=== PATIENT | male | born 1935 | race Caucasian/White ===

== ENCOUNTER → 2017-12-24 | Outpatient (CLI) | payer OTHER ==
[~2017-12-24] MED LIST: ATRO1SO BOTHEYES; Aspir 8181 MG PO; B-12250 MCG; CALCAVITD; Co Q-1010 MG; DOCU100 PO; FISH1000; Ferrous Sulfat324 MG PO; GLYCAS; Garlic1 EACH; Metformin HCl500 MG PO; Multiple Vitam1 EAC1; OXYACE5T PO; Pred Forte1 ML OP; Prinivil10 MG PO; SODCHL2SO TOP; SODCHL3.5O BOTHEYES; Saw Palmetto80 MG; WARF2.5 PO
== END | disposition home or self-care (01) ==
LOC: PLD 10:23 → LAB SHORT 10:23
DX: D48.5 Neoplasm of uncertain behavior of skin (principal)
CPT/HCPCS: 88305

== ENCOUNTER 2019-01-25 16:08 | Emergency (ER) | payer OTHER ==
[~2019-01-25] VITALS: Ht 182.9 cm; Wt 111.1 kg
[2019-01-25 17:16] LABS: BASOPHILS ABSOLUTE AUTO 0.04 K/mm3 (0.00-0.23); BASOPHILS PERCENT AUTO 1 % (0-2); EOSINOPHILS ABSOLUTE AUTO 0.14 K/mm3 (0.00-0.68); EOSINOPHILS PERCENT AUTO 2 % (0-6); Hematocrit 38.7 % (37.0-53.0); Hemoglobin 13.4 g/dL (13.5-17.5); IMMATURE GRAN ABSOLUTE AUTO 0.02 K/mm3 (0.00-0.10); IMMATURE GRAN PERCENT AUTO 0 % (0-1); LYMPHOCYTES PERCENT AUTO 12 % (21-46); MONOCYTES ABSOLUTE AUTO 0.77 K/mm3 (0.16-1.47); MONOCYTES PERCENT AUTO 10 % (4-13); Mean Corpuscular HGB 33.7 pg (26.0-34.0); Mean Corpuscular HGB Conc 34.6 g/dL (31.5-36.5); Mean Corpuscular Volume 97 fL (80-100); Mean Platelet Volume 10.6 fL (9.1-12.4); NEUTROPHILS ABSOLUTE AUTO 5.78 K/mm3 (1.96-9.15); NEUTROPHILS PERCENT AUTO 76 % (41-73); Platelet Count 192 K/mm3 (150-400); RDW Coefficient Variation 11.9 % (11.7-14.2); RDW Standard Deviation 42.7 fL (35.1-46.3); Red Blood Cell Count 3.98 M/mm3 (4.30-5.90); White Blood Cell Count 7.65 K/mm3 (4.00-11.30)
[2019-01-25 17:35] LABS: Alanine Aminotransfer (ALT/SGP 42 U/L (12-78); Albumin, Blood 3.5 g/dL (3.4-5.0); Albumin/Globulin Ratio 0.8 (0.8-1.8); Alk Phos 72 U/L (50-136); Anion Gap 9 mmol/L (6-16); Aspartate Aminotrans (AST/SGOT 34 U/L (12-37); Bilirubin, Total 0.6 mg/dL (0.1-1.0); Blood Urea Nitrogen 34 mg/dL (8-24); Bun/Creatinine Ratio 31.8 (12.0-20.0); CO2, Blood 24 mmol/L (21-32); Calcium, Blood 8.5 mg/dL (8.5-10.1); Chloride, Blood 101 mmol/L (98-108); Creatinine, Blood 1.07 mg/dL (0.60-1.20); Globulin, Blood 4.2 g/dL (2.2-4.0); Glomerular Filtration Rate >60 (60-); Glucose, Blood 117 mg/dL (70-99); Sodium, Blood 134 mmol/L (136-145); Total Protein, Blood 7.7 g/dL (6.4-8.2)
[2019-01-25] MEDS ORDERED: METF500 (19:42)
[2019-01-25] MEDS ORDERED: LISI5 PO (19:42)
[2019-01-25] MEDS ORDERED: SODCHL3.5O BOTHEYES (19:42)
[2019-01-25] MEDS ORDERED: ATROPINE SULFATE2 ML OP (19:43)
[2019-01-25] MEDS ORDERED: PREDNISOLONE ACE5 ML OP (19:43)
[2019-01-25] MEDS ORDERED: TUMS500 MG PO (19:44)
[2019-01-25] MEDS ORDERED: ASPI81CH PO (19:44)
[2019-01-25] MEDS ORDERED: CYAN100T2 (19:45)
[2019-01-25] MEDS ORDERED: Garlic1 EAC1 PO (19:45)
[2019-01-25] MEDS ORDERED: FISH OIL + D31 EACH PO (19:46)
[2019-01-25] MEDS ORDERED: Keflex500 MG PO (22:26)
== END 2019-01-25 23:30 | disposition home or self-care (01) ==
LOC: ER 16:08
PROVIDERS: Physician Assistant
DX: L03.116 Cellulitis of left lower limb (principal); E11.9 Type 2 diabetes mellitus without complications; Z88.2 Allergy status to sulfonamides; Z79.899 Other long term (current) drug therapy; Z79.82 Long term (current) use of aspirin; Z79.52 Long term (current) use of systemic steroids; I10 Essential (primary) hypertension
CPT/HCPCS: 36415; 80053; 83605; 85025; 93971; 96361; 96365; 99284-25; J7120

== ENCOUNTER 2022-03-27 00:42 | Day surgery (SDC) | payer OTHER ==
[~2022-03-27 00:42] MED LIST changes: +ASPI81CH PO; +ATROPINE SULFATE2 ML OP; +CYAN100T2; +FISH OIL + D31 EACH PO; +Garlic1 EAC1 PO; +Keflex500 MG PO; +LISI5 PO; +METF500; +PREDNISOLONE ACE5 ML OP; +TUMS500 MG PO
== END 2022-03-27 23:19 | disposition home or self-care (01) ==
LOC: WOUND 00:42
DX: L97.812 Non-pressure chronic ulcer of other part of right lower leg with fat layer exposed (principal); L97.819 Non-pressure chronic ulcer of other part of right lower leg with unspecified severity; T14.8XXA Other injury of unspecified body region, initial encounter; E11.59 Type 2 diabetes mellitus with other circulatory complications; I87.2 Venous insufficiency (chronic) (peripheral); Z88.0 Allergy status to penicillin; Z88.2 Allergy status to sulfonamides; Z88.8 Allergy status to other drugs, medicaments and biological substances
CPT/HCPCS: A9270; G0463

== ENCOUNTER 2022-04-03 03:09 | Day surgery (SDC) | payer OTHER | END 2022-04-03 23:19 | disposition home or self-care (01) | LOC: WOUND 03:09 | DX: E11.622 Type 2 diabetes mellitus with other skin ulcer (principal); L97.822 Non-pressure chronic ulcer of other part of left lower leg with fat layer exposed; I87.313 Chronic venous hypertension (idiopathic) with ulcer of bilateral lower extremity; L97.912 Non-pressure chronic ulcer of unspecified part of right lower leg with fat layer exposed; E11.59 Type 2 diabetes mellitus with other circulatory complications; I87.2 Venous insufficiency (chronic) (peripheral) | CPT/HCPCS: A9270 ==

== ENCOUNTER 2022-04-17 01:07 | Day surgery (SDC) | payer OTHER | END 2022-04-17 23:36 | disposition home or self-care (01) | LOC: WOUND 01:07 | DX: E11.622 Type 2 diabetes mellitus with other skin ulcer (principal); L97.822 Non-pressure chronic ulcer of other part of left lower leg with fat layer exposed; L97.812 Non-pressure chronic ulcer of other part of right lower leg with fat layer exposed; I87.312 Chronic venous hypertension (idiopathic) with ulcer of left lower extremity; I87.311 Chronic venous hypertension (idiopathic) with ulcer of right lower extremity; E11.59 Type 2 diabetes mellitus with other circulatory complications; I87.2 Venous insufficiency (chronic) (peripheral) | CPT/HCPCS: A9270; G0463 ==

== ENCOUNTER 2022-04-24 00:34 | Day surgery (SDC) | payer OTHER | END 2022-04-24 23:57 | disposition home or self-care (01) | LOC: WOUND 00:34 | DX: E11.622 Type 2 diabetes mellitus with other skin ulcer (principal); E11.59 Type 2 diabetes mellitus with other circulatory complications; I96 Gangrene, not elsewhere classified; I87.313 Chronic venous hypertension (idiopathic) with ulcer of bilateral lower extremity; L97.822 Non-pressure chronic ulcer of other part of left lower leg with fat layer exposed; L97.912 Non-pressure chronic ulcer of unspecified part of right lower leg with fat layer exposed | CPT/HCPCS: A9270 ==

== ENCOUNTER 2022-05-01 08:00 | Day surgery (SDC) | payer OTHER | END 2022-05-01 23:59 | disposition home or self-care (01) | LOC: WOUND 08:00 | DX: E11.622 Type 2 diabetes mellitus with other skin ulcer (principal); I87.312 Chronic venous hypertension (idiopathic) with ulcer of left lower extremity; L97.822 Non-pressure chronic ulcer of other part of left lower leg with fat layer exposed; I87.2 Venous insufficiency (chronic) (peripheral) | CPT/HCPCS: A9270 ==

== ENCOUNTER → 2022-05-04 | Outpatient (CLI) | payer OTHER | END | disposition home or self-care (01) | LOC: LAB 10:31 → LAB SHORT 10:31 | DX: L98.1 Factitial dermatitis (principal) | CPT/HCPCS: 87070; 87077; 87186; 87205 ==

== ENCOUNTER 2022-05-08 02:30 | Day surgery (SDC) | payer OTHER | END 2022-05-08 23:35 | disposition home or self-care (01) | LOC: WOUND 02:30 | DX: E11.622 Type 2 diabetes mellitus with other skin ulcer (principal); L97.822 Non-pressure chronic ulcer of other part of left lower leg with fat layer exposed; L97.912 Non-pressure chronic ulcer of unspecified part of right lower leg with fat layer exposed; E11.59 Type 2 diabetes mellitus with other circulatory complications; I87.2 Venous insufficiency (chronic) (peripheral); I87.312 Chronic venous hypertension (idiopathic) with ulcer of left lower extremity; I87.311 Chronic venous hypertension (idiopathic) with ulcer of right lower extremity | CPT/HCPCS: A9270 ==

== ENCOUNTER 2022-05-22 00:29 | Day surgery (SDC) | payer OTHER | END 2022-05-22 23:56 | disposition home or self-care (01) | LOC: WOUND 00:29 | DX: E11.622 Type 2 diabetes mellitus with other skin ulcer (principal); L97.822 Non-pressure chronic ulcer of other part of left lower leg with fat layer exposed; I87.313 Chronic venous hypertension (idiopathic) with ulcer of bilateral lower extremity; L97.912 Non-pressure chronic ulcer of unspecified part of right lower leg with fat layer exposed; E11.59 Type 2 diabetes mellitus with other circulatory complications; I87.2 Venous insufficiency (chronic) (peripheral) | CPT/HCPCS: A9270 ==

== ENCOUNTER 2022-05-29 07:25 | Day surgery (SDC) | payer OTHER | END 2022-05-29 23:08 | disposition home or self-care (01) | LOC: WOUND 07:25 | DX: E11.622 Type 2 diabetes mellitus with other skin ulcer (principal); I87.312 Chronic venous hypertension (idiopathic) with ulcer of left lower extremity; L97.822 Non-pressure chronic ulcer of other part of left lower leg with fat layer exposed; I87.2 Venous insufficiency (chronic) (peripheral) | CPT/HCPCS: A9270 ==

== ENCOUNTER 2022-06-05 05:10 | Day surgery (SDC) | payer OTHER | END 2022-06-05 23:33 | disposition home or self-care (01) | LOC: WOUND 05:10 | DX: E11.622 Type 2 diabetes mellitus with other skin ulcer (principal); I87.313 Chronic venous hypertension (idiopathic) with ulcer of bilateral lower extremity; L97.822 Non-pressure chronic ulcer of other part of left lower leg with fat layer exposed; L97.812 Non-pressure chronic ulcer of other part of right lower leg with fat layer exposed; E11.59 Type 2 diabetes mellitus with other circulatory complications; I87.2 Venous insufficiency (chronic) (peripheral) | CPT/HCPCS: G0463 ==

== ENCOUNTER 2022-06-06 02:39 | Day surgery (SDC) | payer OTHER | END 2022-06-06 22:51 | disposition home or self-care (01) | LOC: WOUND 02:39 | DX: I87.313 Chronic venous hypertension (idiopathic) with ulcer of bilateral lower extremity (principal); L97.922 Non-pressure chronic ulcer of unspecified part of left lower leg with fat layer exposed; L97.912 Non-pressure chronic ulcer of unspecified part of right lower leg with fat layer exposed; E11.59 Type 2 diabetes mellitus with other circulatory complications; I87.2 Venous insufficiency (chronic) (peripheral) ==

== ENCOUNTER → 2022-06-15 | Outpatient (CLI) | payer OTHER ==
[2022-06-15 16:07] LABS: Source, Urine Clean Catch
[2022-06-15 17:33] LABS: Appearance, Urine Clear (Clear); Bilirubin, Urine Neg (Neg); Blood, Urine Neg (Neg); Color, Urine Yellow (P-Yellow); Glucose Qualitative, Urine Neg (Neg); Ketones, Urine Neg (Neg); Leukocyte Esterase, Urine Neg (Neg); Nitrite, Urine Neg (Neg); Protein, Urine Neg (Neg); Specific Gravity, Urine 1.015 (1.003-1.022); Urobilinogen, Urine NORM (Normal)
== END | disposition home or self-care (01) ==
LOC: LAB 16:06 → LAB SHORT 16:06
PROVIDERS: Physician Assistant
DX: N39.0 Urinary tract infection, site not specified (principal)
CPT/HCPCS: 81003

== ENCOUNTER 2022-06-19 01:26 | Day surgery (SDC) | payer OTHER | END 2022-06-19 23:55 | disposition home or self-care (01) | LOC: WOUND 01:26 | DX: E11.622 Type 2 diabetes mellitus with other skin ulcer (principal); I87.313 Chronic venous hypertension (idiopathic) with ulcer of bilateral lower extremity; L97.822 Non-pressure chronic ulcer of other part of left lower leg with fat layer exposed; L97.812 Non-pressure chronic ulcer of other part of right lower leg with fat layer exposed; I87.2 Venous insufficiency (chronic) (peripheral) | CPT/HCPCS: G0463 ==

== ENCOUNTER → 2023-07-23 | Outpatient (CLI) | payer OTHER | END | disposition home or self-care (01) | LOC: LAB SHORT 09:38 → LAB 09:38 | DX: L98.1 Factitial dermatitis (principal) | CPT/HCPCS: 87070; 87205 ==